=== PATIENT | female | born 1945 | race Caucasian/White ===

== ENCOUNTER 2017-07-03 15:16 | Emergency (ER) | payer MEDICARE ==
[~2017-07-03] VITALS: Ht 154.9 cm; Wt 99.8 kg
--- OUTSIDE RECORDS SUMMARY | ~2017-07-03 | XMS | Clinical Summary ---
Demographics + + + | Address | [address] | | | [place] [address] | + + + | Home Phone | | + + + | Preferred Language | Unknown | + + + | Marital Status | Single | + + + | Muslim Affiliation | CHR | + + + | Race | White | + + + | Ethnic Group | Not or | + + + Author + + + | Author | [facility] | + + + | Organization | [facility] | + + + | Address | Unknown | + + + | Phone | Unavailable | + + + Support +------+ +---------+ + | Name | Relationship | Address | Phone | +------+ +---------+ + ECON | Unknown | | +------+ +---------+ + Care Team Providers + +------+ + | Care Surveillance Officer Name | Role | Phone | + +------+ + | Samson Paniagua MD | PP | | + +------+ + Source Comments JEREMY is fully live on [facility] Allergies + + + + + + | Active Allergy | Reactions | Severity | Noted | Comments | | | | | Date | | + + + + + + | Penicillins | Hives | Medium | 06/04/19 | | | | | | 15 | | + + + + + + | Oxycodone-Acetaminop | Nausea and Vomiting | | 06/04/19 | | | hen | | | 15 | | + + + + + + | Tramadol | Nausea and Vomiting | | 06/04/19 | | | | | | 15 | | + + + + + + | Hydrocodone-Acetamin | Nausea and Vomiting | | 06/04/19 | | | ophen | | | 15 | | + + + + + + Current Medications + + + +---------+------+------+-------+ | Prescription | Sig. | Disp. | Refills | Star | End | Statu | | | | | | t | Date | s | | | | | | Date | | | + + + +---------+------+------+-------+ | furosemide 40 mg | Take 40 mg by mouth | | | | | Activ | | oral tablet | once daily. | | | | | e | + + + +---------+------+------+-------+ | glimepiride 2 mg | Take 2 mg by mouth | | | | | Activ | | oral tablet | once daily at | | | | | e | | | bedtime. | | | | | | + + + +---------+------+------+-------+ | b complex-ascorbic | Take 1 each by mouth | | | | | Activ | | acid-folic acid 0.2 | two times daily. | | | | | e | | mg oral tablet | | | | | | | + + + +---------+------+------+-------+ | omeprazole 20 mg | Take 20 mg by mouth | | | | | Activ | | oral capsule,delayed | once daily. | | | | | e | | release(/EC) | | | | | | | + + + +---------+------+------+-------+ | metoprolol | Take 25 mg by mouth | | | | | Activ | | tartrate 25 mg oral | two times daily. | | | | | e | | tablet | | | | | | | + + + +---------+------+------+-------+ | aspirin chewable | Take 81 mg by mouth | | | | | Activ | | 81 mg oral | once daily. | | | | | e | | tablet,chewable | | | | | | | + + + +---------+------+------+-------+ | lovastatin 20 mg | Take 20 mg by mouth | | | | | Activ | | oral tablet | once daily in the | | | | | e | | | evening. Administer | | | | | | | | with evening meal. | | | | | | + + + +---------+------+------+-------+ | CALCIUM | Take 1 tablet by | | | | | Activ | | CARBONATE/VITAMIN D3 | mouth every seven | | | | | e | | (VITAMIN D-3 ORAL) | days. | | | | | | + + + +---------+------+------+-------+ | potassium chloride | Take 1 tablet by | | | | | Activ | | 10 mEq oral tablet | mouth two times | | | | | e | | extended | daily. | | | | | | | releaseIndications: | | | | | | | | Chronic bronchitis | | | | | | | | (HCC), HTN | | | | | | | | (hypertension), HLD | | | | | | | | (hyperlipidemia), | | | | | | | | Type 2 diabetes | | | | | | | | mellitus (HCC), GERD | | | | | | | | (gastroesophageal | | | | | | | | reflux disease), | | | | | | | | History of DVT of | | | | | | | | lower extremity, | | | | | | | | Malignant neoplasm | | | | | | | | mouth floor (HCC) | | | | | | | + + + +---------+------+------+-------+ | warfarin 5 mg oral | Take 2.5-5 mg by | | | | | Activ | | tablet | mouth once daily. | | | | | e | | | 5mg on Tuesday, 2.5mg | | | | | | | | all other days of | | | | | | | | the week | | | | | | + + + +---------+------+------+-------+ | acetaminophen 650 | Take 10.15-20.3 mL | | | 01/2 | | Activ | | mg/20.3 mL oral | by mouth every four | | | 3/20 | | e | | suspension | hours as needed. | | | 15 | | | + + + +---------+------+------+-------+ | chlorhexidine 0.12 | Take 15 mL by mouth | 473 mL | | 01/2 | | Activ | | % mucous membrane | every six hours. | | | 3/20 | | e | | mouthwash | Swish undiluted oral | | | 15 | | | | | rinse around in | | | | | | | | mouth for 30 | | | | | | | | seconds, then spit. | | | | | | | | Do not swallow. | | | | | | + + + +---------+------+------+-------+ Active Problems + + + | Problem | Noted Date | + + + | Chronic bronchitis (HCC) | | + + + + + | Overview: diffuse obstructive (per PCP notes) | + + + +---+ | HTN (hypertension) | | + +---+ | HLD (hyperlipidemia) | | + +---+ | Type 2 diabetes mellitus (HCC) | | + +---+ | GERD (gastroesophageal reflux disease) | | + +---+ | History of DVT of lower extremity | | + +---+ | Malignant neoplasm mouth floor (HCC) | | + +---+ Family History + +------+--------+ + | Relation | Name | Status | Comments | + +------+--------+ + Social History + + + +--------+ + | Tobacco Use | Types | Packs/Day | Years | Date | | | | | Used | | + + + +--------+ + | Former Smoker | Cigarettes | 1.5 | 35 | Quit: 05/30/2013 | + + + +--------+ + + +---+---+---+ | Smokeless Tobacco: | | | | | Never Used | | | | + +---+---+---+ + + + | Sex Assigned at | Date Recorded | | | | + + + | Not on file | | + + + Last Filed Vital Signs + + + + | Vital Sign | Reading | Time Taken | + + + + | Blood Pressure | 157/52 | 07/18/2014 2:31 PM PST | + + + + | Pulse | 58 | 07/18/2014 2:31 PM PST | + + + + | Temperature | 36.3 C (97.3 F) | 06/21/2014 7:35 AM PST | + + + + | Respiratory Rate | 16 | 06/21/2014 7:35 AM PST | + + + + | Oxygen Saturation | 95% | 06/21/2014 7:35 AM PST | + + + + | Inhaled Oxygen | - | - | | Concentration | | | + + + + | Weight | 99.8 kg (220 lb) | 07/18/2014 2:31 PM PST | + + + + | Height | 170.2 cm (5' 7") | 07/18/2014 2:31 PM PST | + + + + | Body Mass Index | 34.46 | 07/18/2014 2:31 PM PST | + + + + Plan of Treatment + + + + + | Health Maintenance | Due Date | Last Done | Comments | + + + + + | INFLUENZA VACCINE | | | | | (FLU SHOT) | 7 | | | + + + + + Results Not on filefrom Last 3 Months
--- OUTSIDE RECORDS SUMMARY | ~2017-07-03 | XMS | Clinical Summary ---
Demographics + + + | Address | [address] | | | [place] [address] | + + + | Home Phone | | + + + | Preferred Language | Unknown | + + + | Marital Status | Single | + + + | Mandaen Affiliation | CHR | + + + [...] Team Providers + +------+ + | Care Reheater Helper Name | Role | Phone | + +------+ + | Samson Paniagua MD | PP | | + +------+ + Source Comments JEREMY is fully live on [facility] Allergies + + + + + + [...]
[~2017-07-03 15:16] MED LIST: ACETAMINOPHEN-118 M1 PO; ASPIRIN EC81 MG PO; CEPHALEXIN500 MG PO; COMBIVENT INH14.7 GM INH; DOXYCYCLINE HY100 MG PO; FENTANYL1 EAC2 TD; FOSAMAX70 MG PO; FUROSEMIDE40 MG PO; GLIMEPIRIDE2 MG PO; GLYBURIDE2.5 MG PO; KLOR-CON 1010 MEQ PO; LEVOFLOXACIN500 MG PO; LISINOPRIL10 MG; LOVASTATIN20 MG PO; MECLIZINE HCL25 MG PO; METOPROLOL SUCC25 MG PO; METOPROLOL TART25 MG PO; METOPROLOL TART50 MG PO; NYSTATIN100000 UN1 PO; OCUVITE LUTEIN1 EAC1 PO; OMEGA 3 FISH O1 EACH PO; PERIDEX473 ML PO; PREDNISONE10 MG PO; PRILOSEC20 MG PO; PROVENTIL HFA6.7 GM INH; SURESTEP PRO1 EA VI; VITAMIN B COMP1 EACH PO; VITAMIN D250000 UNIT PO; VITAMIN D32000 UNIT PO; WARFARIN SODIUM5 MG PO
[2017-07-03] MEDS ORDERED: LISINOPRIL10 MG PO (16:54)
--- NOTE | 2017-07-04 14:52 | EKG ---
[facility] [address] [place] [address] Signed Sinus bradycardia Otherwise normal ECG When compared with ECG of 23-FEB-2016 11:49, No significant change was found Confirmed by MAURICE BARRIGA MD ([id number]) on 07/04/2017 2:51:59 PM Electronically Signed By: MAURICE BARRIGA MD 07/04/17 1452 PATIENT NAME: DECLAN BARRON Electrocardiogram DATE OF : 41 PHYSICIAN: MAURICE BARRIGA MD REPORT #: [id number] REPORT IS CONFIDENTIAL AND NOT TO BE RELEASED WITHOUT AUTHORIZATION
[2017-08-23] MEDS ORDERED: ZESTRIL10 MG PO (11:08)
[2017-08-23] MEDS ORDERED: CELEXA20 MG PO (11:09)
== END 2017-07-03 18:04 | disposition home or self-care (01) ==
LOC: ED 15:16
DX: R42 Dizziness and giddiness (principal); R00.1 Bradycardia, unspecified; J44.9 Chronic obstructive pulmonary disease, unspecified; I10 Essential (primary) hypertension; E11.9 Type 2 diabetes mellitus without complications; K21.9 Gastro-esophageal reflux disease without esophagitis; Z87.891 Personal history of nicotine dependence; Z88.0 Allergy status to penicillin; Z88.8 Allergy status to other drugs, medicaments and biological substances; Z88.5 Allergy status to narcotic agent; Z79.899 Other long term (current) drug therapy; Z79.01 Long term (current) use of anticoagulants
CPT/HCPCS: 70450; 80053; 81001; 84484; 85025; 93005; 93010; 99284

== ENCOUNTER 2017-12-06 07:55 | Day surgery (SDC) | payer MEDICARE ==
[~2017-12-06] VITALS: Ht 154.9 cm; Wt 91.6 kg
[~2017-12-06 07:55] MED LIST changes: +CELEXA20 MG PO; +FAMOTIDINE10 MG PO; +LISINOPRIL10 MG PO; +ZESTRIL10 MG PO
--- NOTE | 2017-12-06 10:00 | NUR ---
12/06/17 Taylor Sofia 0993 PT ARRIVED WITH EYES OPEN AND RESP EVEN AND UNLABORED ON 6L VIA MASK. 0955 O2 REMOVED O2 SAT 100%. PT DENIES NAUSEA AND PAIN AND IS RESTING IN BED.
--- NOTE | 2017-12-06 10:25 | NUR ---
PATIENT RETURNED TO DAY SURGERY, AWAKE AND ON ROOM AIR. PATIENT TOLERATING A CUP OF WATER AND JELLO PROVIDED. IV IS SALINE LOCKED. PATIENT HAS NO NAUSEA, REPORT 1/10 LEFT MOUTH PAIN. FAMILY IN ROOM WITH PATIENT.
[2017-12-06] MEDS ORDERED: DILAUDID2 MG PO (10:43)
--- NOTE | 2017-12-06 10:52 | NUR ---
PATIENT TOLERATING P.O. INTAKE. PATIENT DENIES NEED TO VOID AT THIS TIME. NO PAIN OR NAUSEA. PAIN MEDICATION PRESCRIPTION GIVEN TO FAMILY TO DROP OFF AT PHARMACY. PATIENT DENIES NEED FOR PAIN MEDICATION AT THIS TIME.
--- NOTE | 2017-12-06 11:20 | NUR ---
PATIENT GIVEN DISCHARGE INSTRUCTIONS, UP TO VOID.
--- NOTE | 2017-12-06 11:31 | NUR ---
PATIENT WHEELED TO FRONT ENTRANCE VIA WHEELCHAIR. PATIENT PLACED SELF IN CAR AND FAMILY DRIVING PATIENT HOME.
--- NOTE | 2017-12-06 17:26 | OR ---
[facility] [address] [place], [place] [address] Signed DATE OF OPERATION: 12/06/2017 SURGEON: Wayne Young MD PREOPERATIVE DIAGNOSIS: Left oral lesion. POSTOPERATIVE DIAGNOSIS: Left oral lesion. PROCEDURE PERFORMED: Biopsy of left oral lesion. ANESTHESIA: General LMA, C.R.N.Kelsey. [place]. PREOPERATIVE HISTORY: Ms. Barron is a 72-year-old lady with an exophytic lesion on the left buccal mucosa. She is taken to the operating room for an excision biopsy and frozen section evaluation. 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 OPERATIVE PROCEDURE AND FINDINGS: After informed consent, the patient was taken to the operating room and placed in supine position where general LMA anesthesia was induced. The patient and procedure were verified. Headlight exam of the oral cavity showed exophytic granular lesion on the left buccal mucosa. Several biopsies were taken with the Sara and sent to Pathology for frozen section. This was very friable granular tissue. It extended back posteriorly near the retromolar trigone onto the mandible from the buccal mucosa onto the lateral floor of mouth on this side anteriorly along the mandible, the edentulous mandible near the first tooth, which was a canine. Fairly extensive ulcerated erosive lesion, frozen section came back as at least carcinoma in situ, probably squamous cell cancer. It was decided that major excision would be necessary, which would not be attempted today. The bleeding stopped after simple observation. Pharynx was suctioned clear of blood and secretions. The patient was then awakened, extubated, and transported to recovery room in good condition. COMPLICATIONS: No complications. Electronically Signed By: WAYNE YOUNG MD 12/06/17 1726 PATIENT NAME: DECLAN BARRON OPERATIVE REPORT DATE OF : 41 REPORT #: [id number] PHYSICIAN: WAYNE YOUNG MD PCP: JACK PERRY MD REPORT IS CONFIDENTIAL AND NOT TO BE RELEASED WITHOUT AUTHORIZATION [facility] [address] [place] [address] Signed BLOOD LOSS: Minimal. SPECIMEN: To Pathology. DRAINS: No drains. Wayne Young MD GC/VERNONL /[id number] Copies: ~ Electronically Signed By: WAYNE YOUNG MD 12/06/17 1726 PATIENT NAME: DECLAN BARRON OPERATIVE REPORT DATE OF : 41 REPORT #: [id number] PHYSICIAN: WAYNE YOUNG MD PCP: JACK PERRY MD REPORT IS CONFIDENTIAL AND NOT TO BE RELEASED WITHOUT AUTHORIZATION
== END 2017-12-06 11:25 | disposition home or self-care (01) ==
LOC: OPS 07:55 → DS 07:55 → OPS 09:30 → DS 12:00
PROVIDERS: Otolaryngology
PROC: 0CB40ZX Excision of Buccal Mucosa, Open Approach, Diagnostic (ICD-10-PCS; principal; 2017-12-06 09:30)
DX: C06.9 Malignant neoplasm of mouth, unspecified (principal); E78.00 Pure hypercholesterolemia, unspecified; I10 Essential (primary) hypertension; J45.909 Unspecified asthma, uncomplicated; E11.9 Type 2 diabetes mellitus without complications; Z87.891 Personal history of nicotine dependence; Z88.0 Allergy status to penicillin; Z88.5 Allergy status to narcotic agent; Z79.84 Long term (current) use of oral hypoglycemic drugs; Z79.899 Other long term (current) drug therapy
CPT/HCPCS: J2405; J2704; J2765; J3010; J7120

== ENCOUNTER 2020-07-29 08:00 | Day surgery (SDC) | payer MEDICARE ==
[~2020-07-29] VITALS: Ht 157.5 cm; Wt 92.7 kg
--- NOTE | ~2020-07-29 | OR ---
[facility] [address] [place], [place] [address] Draft DATE OF OPERATION: 07/29/2020 SURGEON: Wayne Lee MD PREOPERATIVE DIAGNOSIS: Left facial lesion and dysphagia. POSTOPERATIVE DIAGNOSIS: Left facial lesion and dysphagia. PROCEDURE: Direct laryngoscopy, excision of left facial lesion. ANESTHESIA: General orotracheal; PASSENGER REPRESENTATIVE, Jodi. 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 She had a major excision of the left floor of mouth lesion about 2-1/2 years ago at [facility]. She had a composite resection with flap reconstruction, tracheostomy. 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 This granulation type tissue fistula has gotten larger concern regarding recurrent cancer. She is taken to the operating room for excision of this lesion. Also having some problems with dysphagia. We will perform a laryngoscopy to evaluate that. OPERATIVE PROCEDURE AND FINDINGS: After informed consent, the patient was taken to the operating room, placed in the supine position where general orotracheal anesthesia was induced. The patient and procedure were verified. The patient was repositioned. The anterior commissure laryngoscope was used to visualize the hypopharynx and larynx. No abnormalities were seen. Piriform was clear. No biopsies. The scope was removed, well tolerated. The patient was repositioned. The left face was sterilely prepped and draped. The lesion in question was about 2 cm in diameter in the skin overlying the anterior mandible near the mental process a bit above the edge of the mandible. This was a granular type lesion with scar tissue surrounding it. The area was sterilely prepped and draped. 1% lidocaine with epi was injected. Excision was performed in elliptical manner through skin, subcutaneous tissue. There was lots of granulation tissue and the granulation tissue was overlying the mandibular reconstruction plate. The lesion was sent to pathology in formalin. Granulation tissue was excised sharply. The skin was PATIENT NAME: GEMMA BARRON OPERATIVE REPORT DATE OF : 41 REPORT #: [id number] PHYSICIAN: WAYNE LEE MD PCP: JACK PERRY MD REPORT IS CONFIDENTIAL AND NOT TO BE RELEASED WITHOUT AUTHORIZATION [facility] [address] [place], [place] [address] Draft elevated on either side to allow tension free closure. The closure was with 4-0 interrupted Vicryl subcu and 4-0 interrupted nylon on the skin. Excellent cosmetic closure was obtained. The patient was then awakened, extubated, and transported to recovery room in good condition. No complications. BLOOD LOSS: Minimal. SPECIMEN: To pathology, left cheek lesion. DRAINS: None. Wayne Lee MD GC/MODL /[id number] Copies: ~ PATIENT NAME: GEMMA BARRON OPERATIVE REPORT DATE OF : 41 REPORT #: [id number] PHYSICIAN: WAYNE LEE MD PCP: JACK PERRY MD REPORT IS CONFIDENTIAL AND NOT TO BE RELEASED WITHOUT AUTHORIZATION
[~2020-07-29 08:00] MED LIST changes: +CALCIUM500 MG PO; +DILAUDID2 MG PO; +LOSARTAN POTASS25 MG PO; +LUBRICANT EYE D10 ML OD; +OMEGA 3 1,0001 EACH PO; +PRILOSEC OTC20 MG PO
--- NOTE | 2020-07-29 10:13 | NUR ---
07/29/20 1013 Tonya Cantu 1007 PATIENT ARRIVES TO PACU ASLEEP, OPENS EYES WITH VERBAL STIMULI. BACK TO SLEEP WHEN NOT STIMULATED. AUDIBLE GURGLING, MOUTH SUCTIONED, GURGLING RESOLVED. RESP EVEN AND UNLABORED, MASK AT 6 LITERS. 1010 PATIENT AWAKE OFF/ON, DENIES PAIN OR NAUSEA. RESP EVEN AND UNLABORED, MASK CONTINUED AT 6 LITERS. 1013 OXYGEN MASK OFF.
--- NOTE | 2020-07-29 10:38 | NUR ---
PATIENT BACK IN DAY SURGERY ROOM FROM PACU. DENIES PAIN. DENIES NAUSEA. LEFT CHIN DRESSING CDI. IV SITE WNL. TOLERATING WATER. DECLINES SOMETHING TO EAT AT THIS TIME. SCDs ON. CALL LIGHT WITHIN REACH.
--- NOTE | 2020-07-29 11:04 | NUR ---
PATIENT STATES DOING WELL. DENIES PAIN. DENIES NAUSEA. LEFT CHIN DRESSING CDI. TOLERATING WATER. DISCHARGE INSTRUCTIONS GIVEN TO PATIENT. PATIENT C/O FEELING COLD. WARM BLANKETS GIVEN TO PATIENT. CALL LIGHT WITHIN REACH.
--- NOTE | 2020-07-29 13:01 | NUR ---
1120: VS CHECKED. PATIENT STATES SHE FEELS NAUSEOUS, COLD AND SHAKEY. BLOOD SUGAR CHECKED FOR 156 MG/DL. PATIENT GIVEN JELLO TO EAT. PATIENT THINKS EATING SOMETHING MAY HELP HER FEEL BETTER SINCE SHE HASN'T EATEN SINCE LAST NIGHT. WARM BLANKETS GIVEN TO PATIENT. CALL LIGHT IN REACH. 1145: PATIENT ASSISTED OOB. GAIT STEADY. ASSISTED TO PATIENT TO GET DRESSED. PATIENT STATES NAUSEA BETTER. STILL SLIGHTLY THERE, THOUGH. PATIENT WOULD LIKE TO GO HOME. RIDE CALLED. 1155: PATIENT DISCHARGED TO HOME WITH FRIEND VIA WHEELCHAIR.
--- NOTE | 2020-07-30 10:47 | PATH ---
[facility] [address] [place], [place] [address] Signed SPECIMEN(S): A LEFT FACIAL LESION SPECIMEN SOURCE: A. LEFT FACIAL LESION CLINICAL HISTORY: Left facial lesion. History of mouth squamous cell carcinoma. FINAL PATHOLOGIC DIAGNOSIS: Skin, left face, excision: - Epidermal ulcer with polypoid granulation tissue and abscess formation. - No evidence of malignancy. COMMENT: Correlation with microbiological culture may be helpful. NAL:cml:C2NR MICROSCOPIC EXAMINATION: Histologic sections of all submitted blocks are examined by light microscopy. These findings, together with the gross examination, support the pathologic diagnosis. GROSS DESCRIPTION: The specimen, labeled "BW, left facial lesion," is received in formalin and consists of one unoriented skin ellipse that measures 2.0 x 0.8 x 0.5 cm. The skin surface shows a pink-griffin, soft nodule that measures 0.7 cm in dimension. The nodule abuts the surgical margins. The specimen is inked, serially sectioned and entirely submitted in cassette (A1). JS (under the direct supervision of a pathologist) The Gross Description was prepared using a voice recognition system. The report was reviewed for accuracy; however, sound-alike word errors, addition and/or deletions may occur. If there is any question about this report, please contact Client Services. PERFORMING LABORATORY: The technical component was performed by [employer], [address] [place] [id number] (Portable Sawyer: Earlene Phillips MD; CLIA# [id number]). [facility], [address] [address] (CLIA# [id number]). PATIENT NAME: DECLAN BARRON PATHOLOGY DATE OF : 41 REPORT #: [id number] PHYSICIAN: [facility] PCP: JACK PERRY MD REPORT IS CONFIDENTIAL AND NOT TO BE RELEASED WITHOUT AUTHORIZATION [address] [place], [place] [address] Signed Diagnostician: Tammy Arroyo MD Pathologist Electronically Signed 07/30/2020 Copies: ~ PATIENT NAME: DECLAN BARRON [facility] PATHOLOGY DATE OF : 41 REPORT #: [id number] PHYSICIAN: [facility] PATHOLOGY PCP: JACK PERRY MD REPORT IS CONFIDENTIAL AND NOT TO BE RELEASED WITHOUT AUTHORIZATION
== END 2020-07-29 11:55 | disposition home or self-care (01) ==
LOC: DS 08:00 → OPS 08:00
PROVIDERS: ATTEND Otolaryngology
PROC: 0HB1XZZ Excision of Face Skin, External Approach (ICD-10-PCS; 2020-07-29)
PROC: 0CJS8ZZ Inspection of Larynx, Via Natural or Artificial Opening Endoscopic (ICD-10-PCS; principal; 2020-07-29 10:00)
PROC: 0HQ1XZZ Repair Face Skin, External Approach (ICD-10-PCS; 2020-07-29 10:00)
DX: L98.499 Non-pressure chronic ulcer of skin of other sites with unspecified severity (principal); L02.01 Cutaneous abscess of face; R13.10 Dysphagia, unspecified; I10 Essential (primary) hypertension; E78.00 Pure hypercholesterolemia, unspecified; J43.9 Emphysema, unspecified; E11.9 Type 2 diabetes mellitus without complications; R06.83 Snoring; R42 Dizziness and giddiness; R94.31 Abnormal electrocardiogram [ECG] [EKG]; F41.0 Panic disorder [episodic paroxysmal anxiety]; M81.0 Age-related osteoporosis without current pathological fracture; K14.8 Other diseases of tongue; Z85.818 Personal history of malignant neoplasm of other sites of lip, oral cavity, and pharynx; Z96.5 Presence of tooth-root and mandibular implants; Z79.01 Long term (current) use of anticoagulants; Z86.718 Personal history of other venous thrombosis and embolism; Z79.84 Long term (current) use of oral hypoglycemic drugs; Z87.891 Personal history of nicotine dependence; Z88.1 Allergy status to other antibiotic agents; Z88.5 Allergy status to narcotic agent; Z88.0 Allergy status to penicillin
CPT/HCPCS: 85610; J0330; J2001; J2250; J2704; J7121

== ENCOUNTER 2020-10-20 20:39 | Emergency (ER) | payer MEDICARE ==
[~2020-10-20] VITALS: Ht 157.5 cm; Wt 94.0 kg
--- NOTE | 2020-10-21 09:46 | EKG ---
[facility] [address] [facility] [place] [address] Signed Normal sinus rhythm Nonspecific ST abnormality Abnormal ECG When compared with ECG of 26-JUL-2020 09:08, Criteria for Septal infarct are no longer present Confirmed by MAURICE BARRIGA MD ([id number]) on 10/21/2020 9:46:14 AM Electronically Signed By: MAURICE BARRIGA MD 10/21/20 0946 PATIENT NAME: DECLAN BARRON Electrocardiogram DATE OF : 41 PHYSICIAN: MAURICE BARRIGA MD REPORT #: [id number] REPORT IS CONFIDENTIAL AND NOT TO BE RELEASED WITHOUT AUTHORIZATION
== END 2020-10-20 22:10 | disposition home or self-care (01) ==
LOC: ED 20:39
DX: R07.9 Chest pain, unspecified (principal); J44.9 Chronic obstructive pulmonary disease, unspecified; I10 Essential (primary) hypertension; E11.9 Type 2 diabetes mellitus without complications; K21.9 Gastro-esophageal reflux disease without esophagitis; Z87.891 Personal history of nicotine dependence; Z88.0 Allergy status to penicillin; Z88.8 Allergy status to other drugs, medicaments and biological substances; Z88.5 Allergy status to narcotic agent; Z79.899 Other long term (current) drug therapy; Z79.01 Long term (current) use of anticoagulants
CPT/HCPCS: 71045; 80053; 83735; 84484; 85025; 85610; 93005; 93010; 99285-25

== ENCOUNTER 2022-03-27 18:21 | Emergency (ER) | payer MEDICARE ==
[~2022-03-27] VITALS: Ht 157.5 cm; Wt 93.1 kg
[~2022-03-27 18:21] MED LIST changes: +OMEPRAZOLE20 MG PO
--- NOTE | 2022-03-28 12:25 | EKG ---
[facility] [address] [facility] [place], [place] [address] Signed Normal sinus rhythm Nonspecific ST abnormality Abnormal ECG When compared with ECG of 24-FEB-2021 15:17, No significant change was found Confirmed by TEODORO MONACO MD ([id number]) on 03/28/2022 12:25:05 PM Electronically Signed By: TEODORO MONACO MD 03/28/22 1225 PATIENT NAME: DECLAN BARRON Electrocardiogram DATE OF : 41 PHYSICIAN: TEODORO MONACO MD REPORT #: [id number] REPORT IS CONFIDENTIAL AND NOT TO BE RELEASED WITHOUT AUTHORIZATION
== END 2022-03-27 19:48 | disposition home or self-care (01) ==
LOC: ED 18:21
DX: J40 Bronchitis, not specified as acute or chronic (principal); Z20.822 Contact with and (suspected) exposure to COVID-19; K21.9 Gastro-esophageal reflux disease without esophagitis; I10 Essential (primary) hypertension; E11.9 Type 2 diabetes mellitus without complications; Z87.891 Personal history of nicotine dependence; Z88.0 Allergy status to penicillin; Z88.8 Allergy status to other drugs, medicaments and biological substances; Z88.5 Allergy status to narcotic agent; Z79.899 Other long term (current) drug therapy; Z79.01 Long term (current) use of anticoagulants
CPT/HCPCS: 36415; 71045; 80053; 83880; 84484; 85025; 87502; 93005; 93010; 99285-25; C9803; U0003

== ENCOUNTER 2024-03-30 15:42 | Emergency (ER) | payer MEDICARE ==
[~2024-03-30] VITALS: Ht 157.5 cm; Wt 93.3 kg
[~2024-03-30 15:42] MED LIST changes: +ALLOPURINOL100 MG PO; +IRBESARTAN75 MG PO; +PANTOPRAZOLE SO40 MG PO; +TRAZODONE HCL50 MG PO
[2024-03-30] MEDS ORDERED: ALBUTEROL SULFATE 0.083% 3 ML VIAL INH ONE (16:30)
[2024-03-30] MEDS ORDERED: methylPREDNISolone SOD SUCC 125 MG/2 ML VIAL IV ONE (16:30)
[2024-03-30 16:48] LABS: BASOPHILS 2.5 % (0-2); EOSINOPHILS 2.1 % (0-6); HEMATOCRIT 37.7 % (35.0-50.0); HEMOGLOBIN 12.3 g/dL (12.0-18.0); MCH 28.2 (27-36); MCHC 32.7 g/dl (30-36); MCV 86.1 fl (81-99); NEUTROPHILS 67.4 % (39-80); PLATELET COUNT 314 K/uL (140-440); RBC 4.38 M/ul (4.3-5.7); RDW 13.1 (10.5-15.0)
[2024-03-30] MEDS ORDERED: LISINOPRIL10 MG PO (16:51)
[2024-03-30] MEDS ORDERED: DIPHENOXYLATE-1 EACH PO (16:53)
[2024-03-30] MEDS ORDERED: DOXYCYCLINE HY100 M3 PO (16:53)
[2024-03-30 16:58] LABS: INR 2.07 (0.80-1.30); PROTIME 22.9 Sec (11.2-14.2)
[2024-03-30 17:09] LABS: ALBUMIN 3.4 g/dL (3.4-5.0); ALBUMIN/GLOBULIN RATIO 0.83 (1.1-2.4); ANION GAP 9.6 (7-21); BILIRUBIN, TOTAL 0.4 ng/dL (0.2-1.0); BUN/CREATININE RATIO 12.75 (6.0-28.6); CALCIUM 9.3 mg/dL (8.5-10.1); CREATININE, SERUM 1.49 mg/dL (0.55-1.02); POTASSIUM 3.6 mmol/L (3.5-5.1); PROTEIN, TOTAL 7.5 g/dL (6.4-8.2)
[2024-03-30] MEDS ORDERED: levoFLOXacin 500 MG TAB PO ONE (17:45)
[2024-03-30] MEDS ORDERED: INHALER, ASSIST DEVICES 1 EACH SPACER MISC ONE (17:45)
[2024-03-30] MEDS ORDERED: ALBUTEROL SULFATE 8 GM HOME.PACK INH ONE (17:45)
[2024-03-30] MEDS ORDERED: PREDNISONE20 MG PO (17:47)
[2024-03-30] MEDS ORDERED: LEVOFLOXACIN500 MG PO (17:47)
[2024-03-30 18:19] VITALS: BP 135/77
== END 2024-03-30 18:11 | disposition home or self-care (01) ==
LOC: ED 15:42
PROVIDERS: Emergency Medicine
DX: J18.9 Pneumonia, unspecified organism (principal); J44.0 Chronic obstructive pulmonary disease with (acute) lower respiratory infection; I10 Essential (primary) hypertension; E11.9 Type 2 diabetes mellitus without complications; Z87.891 Personal history of nicotine dependence; Z88.0 Allergy status to penicillin; Z88.5 Allergy status to narcotic agent; Z88.8 Allergy status to other drugs, medicaments and biological substances; Z79.899 Other long term (current) drug therapy; Z79.01 Long term (current) use of anticoagulants
CPT/HCPCS: 36415; 71045; 80053; 83880; 85025; 85610; 94640; 96374; 99285-25; J2919

== ENCOUNTER 2025-03-19 14:59 | Emergency (ER) | payer OTHER, MEDICARE ==
[~2025-03-19] VITALS: Ht 157.5 cm; Wt 90.0 kg
[~2025-03-19 14:59] MED LIST changes: +CALCIUM PO; -CALCIUM500 MG PO; +DIPHENOXYLATE-1 EACH PO; +DOXYCYCLINE HY100 M3 PO; +FLUOROMETHOLONE5 ML OU; +IRBESARTAN150 MG PO; +JARDIANCE10 MG PO; +PREDNISONE20 MG PO; +[UNRECOGNIZED DRUG - OTHER] PO
[2025-03-19 15:45] LABS: BASOPHILS 0.4 % (0.1-1.2); EOSINOPHILS 1.6 % (0.7-5.8); LYMPHOCYTES 24.6 % (19.3-51.7); MCH 27.5 PG (25.6-32.2); MCHC 32.3 g/dL (32.2-35.5); MCV 85.1 fL (79.4-94.8); MONOCYTES 5.3 % (4.7-12.5); NEUTROPHILS 67.7 % (34.0-71.1); RBC 4.44 M/uL (3.93-5.22)
[2025-03-19] MEDS ORDERED: KETOROLAC TROMETHAMINE 15 MG/ML VIAL IV ONE (15:45)
[2025-03-19 15:49] LABS: INR 1.8 (0.80-1.30); PROTIME 19.8 Sec (11.2-14.2)
[2025-03-19 15:54] LABS: ALT (SGPT) 16.0 U/L (14-59); AST (SGOT) 17.0 U/L (15-37); GLOMERULAR FILTRATION RATE,EST 29.0 mL/min (>60); PROTEIN, TOTAL 8.3 g/dL (6.4-8.2); UREA NITROGEN 37.0 mg/dL (7-18)
[2025-03-19] MEDS ORDERED: HYDROmorphone HCL 1 MG/ML SYR IV PRN (16:15)
[2025-03-19] MEDS ORDERED: LIDOCAINE HCL 2% 20 MG/ML VIAL INJ ONE (17:10)
[2025-03-19] MEDS ORDERED: LIDOCAINE HCL 2% 5 ML SDV ONE (17:10)
[2025-03-19] MEDS ORDERED: DEXAMETHASONE SOD PHOS 10 MG/ML VIAL ONE (17:24)
[2025-03-19] MEDS ORDERED: Ropivacaine HCl 0.5% 30 ML VIAL ONE (17:24)
[2025-03-19] MEDS ORDERED: ONDANSETRON ODT4 MG PO (18:32)
[2025-03-19] MEDS ORDERED: HYDROCODON-ACE1 EA10 PO (18:32)
[2025-03-19 19:31] VITALS: BP 146/52
== END 2025-03-19 19:32 | disposition home or self-care (01) ==
LOC: ED 14:59
PROVIDERS: Emergency Medicine
DX: S42.252A Displaced fracture of greater tuberosity of left humerus, initial encounter for closed fracture (principal); S42.212A Unspecified displaced fracture of surgical neck of left humerus, initial encounter for closed fracture; W18.30XA Fall on same level, unspecified, initial encounter; J44.9 Chronic obstructive pulmonary disease, unspecified; I10 Essential (primary) hypertension; E11.9 Type 2 diabetes mellitus without complications; Z87.891 Personal history of nicotine dependence; Z88.0 Allergy status to penicillin; Z88.5 Allergy status to narcotic agent; Z79.899 Other long term (current) drug therapy
CPT/HCPCS: 36415; 64415; 73030; 73060; 80053; 85025; 85610; 96374; 96375; 99284-25; J1100; J1171; J1885; J2003; J2405; J2795

== ENCOUNTER 2025-03-20 16:33 | Inpatient (IN) | payer OTHER, MEDICARE ==
[~2025-03-20] VITALS: Ht 157.5 cm; Wt 90.0 kg
[~2025-03-20 16:33] MED LIST changes: +HYDROCODON-ACE1 EA10 PO; +ONDANSETRON ODT4 MG PO
[2025-03-20] MEDS ORDERED: SODIUM CHLORIDE 0.9% 1,000 ML IV SCH (17:00)
[2025-03-20 17:43] LABS: BASOPHILS 0.1 % (0.1-1.2); EOSINOPHILS 0.2 % (0.7-5.8); LYMPHOCYTES 12.4 % (19.3-51.7); MCH 27.3 PG (25.6-32.2); MCHC 32.5 g/dL (32.2-35.5); MCV 84.0 fL (79.4-94.8); MONOCYTES 7.2 % (4.7-12.5); NEUTROPHILS 79.6 % (34.0-71.1); RBC 3.74 M/uL (3.93-5.22)
[2025-03-20] MEDS ORDERED: ACETAMINOPHEN 325 MG TAB PO PRN (17:45)
[2025-03-20] MEDS ORDERED: GLUCAGON,HUMAN RECOMBINANT 1 MG/ML VIAL SUB-Q PRN (17:45)
[2025-03-20] MEDS ORDERED: DEXTROSE 50% 50 ML SYR IV PRN ×2 (17:45)
[2025-03-20] MEDS ORDERED: DEXTROSE 5% 1,000 ML IV PRN (17:45)
[2025-03-20] MEDS ORDERED: IBLOOD GLUCOSE TEST STRIP 1 EA TEST XX PRN (17:45)
[2025-03-20 17:52] LABS: INR 1.8 (0.80-1.30); PROTIME 20.2 Sec (11.2-14.2)
[2025-03-20 17:57] LABS: ALT (SGPT) 16.0 U/L (14-59); AST (SGOT) 16.0 U/L (15-37); GLOMERULAR FILTRATION RATE,EST 23.0 mL/min (>60); PHOSPHORUS, INORGANIC 3.8 mg/dL (2.5-4.9); PROTEIN, TOTAL 7.2 g/dL (6.4-8.2); UREA NITROGEN 48.0 mg/dL (7-18)
[2025-03-20] MEDS ORDERED: LACTATED RINGER'S 1,000 ML IV SCH (18:30)
[2025-03-20 18:45] VITALS: BP 148/52
[2025-03-20 18:46] VITALS: BP 148/52
[2025-03-20] MEDS ORDERED: MORPHINE SULFATE 4 MG/ML VIAL IV PRN (19:15)
[2025-03-20 20:34] VITALS: BP 126/56
[2025-03-20 20:51] VITALS: BP 126/56
[2025-03-20] MEDS ORDERED: IBLOOD GLUCOSE TEST STRIP 1 EA TEST VI SCH (21:00)
[2025-03-20] MEDS ORDERED: INSULIN LISPRO 100 UNIT/ML ML SUB-Q SCH (21:00)
[2025-03-20 23:52] VITALS: BP 121/52
[2025-03-21] VITALS (9 sets, daily range): BP systolic 107–141; BP diastolic 39–89
[2025-03-21 05:37] LABS: BASOPHILS 0.4 % (0.1-1.2); EOSINOPHILS 1.8 % (0.7-5.8); LYMPHOCYTES 26.4 % (19.3-51.7); MCH 27.8 PG (25.6-32.2); MCHC 32.4 g/dL (32.2-35.5); MCV 85.9 fL (79.4-94.8); MONOCYTES 7.2 % (4.7-12.5); NEUTROPHILS 63.8 % (34.0-71.1); RBC 3.27 M/uL (3.93-5.22)
[2025-03-21 05:51] LABS: GLOMERULAR FILTRATION RATE,EST 30.0 mL/min (>60); UREA NITROGEN 44.0 mg/dL (7-18)
[2025-03-21 05:55] LABS: INR 1.88 (0.80-1.30); PROTIME 21.0 Sec (11.2-14.2)
[2025-03-21] MEDS ORDERED: PHARMACY RENAL DOSE ADJUSTMENT 1 DOSE MISC PO SCH (12:00)
[2025-03-21] MEDS ORDERED: VOLTAREN ARTHRI20 GM TOP (13:03)
[2025-03-21] MEDS ORDERED: SYSTANE 0.3-0.415 ML OU (13:03)
[2025-03-21] MEDS ORDERED: VENTOLIN HFA18 GM INH (13:04)
[2025-03-21] MEDS ORDERED: PROPYLENE GLYCOL OU PRN (15:00)
[2025-03-21] MEDS ORDERED: EMPAGLIFLOZIN 10 MG TAB PO SCH (15:28)
[2025-03-21] MEDS ORDERED: PANTOPRAZOLE SODIUM 40 MG TABEC PO SCH (15:29)
[2025-03-21 16:12] LABS: INR 1.76 (0.80-1.30); PROTIME 19.9 Sec (11.2-14.2)
--- NOTE | 2025-03-21 21:57 | EKG ---
[facility] [address] [facility] [place] [address] Signed Normal sinus rhythm Low voltage QRS Borderline ECG When compared with ECG of 23-JUN-2022 15:38, premature atrial complexes are no longer present Confirmed by Kera John MD () on 03/21/2025 9:57:16 PM Electronically Signed By: KERA JOHN MD 03/21/252156 PATIENT NAME: DECLAN BARRON Electrocardiogram DATE OF : 41 PHYSICIAN: KERA JOHN MD REPORT #: [id number] REPORT IS CONFIDENTIAL AND NOT TO BE RELEASED WITHOUT AUTHORIZATION
[2025-03-22] VITALS (11 sets, daily range): BP systolic 117–147; BP diastolic 40–55
[2025-03-22 05:33] LABS: BASOPHILS 0.5 % (0.1-1.2); EOSINOPHILS 3.1 % (0.7-5.8); LYMPHOCYTES 26.0 % (19.3-51.7); MCH 27.7 PG (25.6-32.2); MCHC 32.3 g/dL (32.2-35.5); MCV 85.8 fL (79.4-94.8); MONOCYTES 8.0 % (4.7-12.5); NEUTROPHILS 61.9 % (34.0-71.1); RBC 3.25 M/uL (3.93-5.22)
[2025-03-22 05:46] LABS: GLOMERULAR FILTRATION RATE,EST 35.0 mL/min (>60); UREA NITROGEN 30.0 mg/dL (7-18)
[2025-03-22 05:47] LABS: INR 1.51 (0.80-1.30); PROTIME 17.6 Sec (11.2-14.2)
[2025-03-22] MEDS ORDERED: DEXAMETHASONE SOD PHOS 4 MG/ML VIAL ONE (06:59)
[2025-03-22] MEDS ORDERED: Ropivacaine HCl 0.5% 30 ML VIAL ONE (06:59)
[2025-03-22] MEDS ORDERED: LIDOCAINE HCL 2% 5 ML SDV ONE ×2 (06:59→08:00)
[2025-03-22] MEDS ORDERED: TRANEXAMIC ACID IN NACL,ISO-OS 1,000 MG/100 ML PIGGYBACK IV SCH (07:00)
[2025-03-22] MEDS ORDERED: CEFAZOLIN SODIUM 2 GM in SODIUM CHLORIDE 0.9% 100 ML IV SCH ×2 (07:00→15:00)
[2025-03-22] MEDS ORDERED: NALOXONE HCL 0.4 MG SYR IV PRN (09:00)
[2025-03-22] MEDS ORDERED: IBLOOD GLUCOSE TEST STRIP 1 EA TEST VI PRN (09:00)
[2025-03-22] MEDS ORDERED: fentaNYL citrate 50 MCG/ML SDV IV PRN (09:00)
[2025-03-22] MEDS ORDERED: PROCHLORPERAZINE EDISYLATE 10 MG/2 ML VIAL IV PRN (09:00)
[2025-03-22] MEDS ORDERED: LACTATED RINGER'S 1,000 ML IV ONE (09:15)
[2025-03-22] MEDS ORDERED: HYDROCODONE/ACETA 7.5/325 TAB PO PRN (10:00)
[2025-03-22] MEDS ORDERED: SEVOFLURANE 250 ML BTL INH ONE (15:07)
[2025-03-22] MEDS ORDERED: WARFARIN SOD 5 MG TAB PO SCH (16:00)
[2025-03-22] MEDS ORDERED: WARFARIN PER PHARMACY PROTOCOL PO SCH (16:00)
[2025-03-22] MEDS ORDERED: MAGNESIUM HYDROXIDE/AL HYDROX 30 ML CUP PO PRN (20:45)
[2025-03-23] VITALS (9 sets, daily range): BP systolic 113–142; BP diastolic 41–76
[2025-03-23 05:22] LABS: INR 1.49 (0.80-1.30); PROTIME 17.1 Sec (11.2-14.2)
--- NOTE | 2025-03-23 09:25 | OR ---
[facility] [address] [place], [place] [address] Signed DATE OF OPERATION: 03/22/2025 SURGEON: Itz Gunter MD PREOPERATIVE DIAGNOSIS: 100% displaced left proximal humerus fracture. POSTOPERATIVE DIAGNOSIS: 100% displaced left proximal humerus fracture. PROCEDURE PERFORMED: Closed reduction and percutaneous pinning, left proximal humerus. SATELLITE TV INSTALLER: None. ANESTHESIA: General. BLOOD LOSS: Minimal. IMPLANTS: Three 2.3 K-wires, one 2.0 K-wire. BRIEF HISTORY: Gemma is an 80-year-old female who suffered a ground level fall with 100% displacement of her proximal humeral fracture and significant pain. She did not tolerate the displacement even with axillary block. Risks and benefits of operative treatment were discussed with her and she elected to proceed. DESCRIPTION OF PROCEDURE: Once consent was obtained, she was taken to the operating room. After adequate anesthesia, she was placed in the OR table in the low beach chair position. All downside pressure points were well padded. The fracture was reduced by forward flexion, internal rotation, and adduction against an axillary roll of towels. This reduced the fracture nicely. Once this was accomplished, the first K-wire was introduced from the anterolateral aspect of the humerus and advanced proximally into the humeral head under direct image intensifier guidance. Second K-wire was placed roughly parallel, but in a more oblique angle. The third K-wire was placed from the greater tuberosity and Electronically Signed By: ITZ GUNTER MD 03/23/25 0925 PATIENT NAME: GEMMA BARRON OPERATIVE REPORT DATE OF : 41 REPORT #: [id number] PHYSICIAN: ITZ GUNTER MD PCP: LJ HUMMEL MD REPORT IS CONFIDENTIAL AND NOT TO BE RELEASED WITHOUT AUTHORIZATION [address] [address] Signed advanced distally engaging the body of the humerus. The fourth K-wire was placed again oblique to the third one. All K-wires were cut below the skin. Final radiographs showed good reduction and placement of the pins. The pin lengths were good. The wounds were then cleansed and dressed with Allevyn dressing and she was awakened, taken to the recovery room in satisfactory condition. All sponge, needle, and instrument counts were correct. Itz Gunter MD BA/AIDEN /[id number] Copies: ~ Electronically Signed By: ITZ GUNTER MD 03/23/25 0925 PATIENT NAME: GEMMA BARRON OPERATIVE REPORT DATE OF : 41 REPORT #: [id number] PHYSICIAN: ITZ GUNTER MD PCP: LJ HUMMEL MD REPORT IS CONFIDENTIAL AND NOT TO BE RELEASED WITHOUT AUTHORIZATION
[2025-03-23] MEDS ORDERED: POLYETHYLENE GLYCOL 3350 1 PACKET PO SCH (14:16)
[2025-03-23] MEDS ORDERED: WARFARIN SOD 5 MG TAB PO SCH (16:00)
[2025-03-24] VITALS (7 sets, daily range): BP systolic 130–142; BP diastolic 49–59
[2025-03-24 05:42] LABS: INR 1.69 (0.80-1.30); PROTIME 19.3 Sec (11.2-14.2)
[2025-03-24] MEDS ORDERED: WARFARIN SOD 2.5 MG TAB PO SCH (16:00)
[2025-03-25 05:21] VITALS: BP 125/40
[2025-03-25 06:06] LABS: GLOMERULAR FILTRATION RATE,EST 43.0 mL/min (>60); UREA NITROGEN 19.0 mg/dL (7-18)
[2025-03-25 06:30] LABS: INR 1.8 (0.80-1.30); PROTIME 20.2 Sec (11.2-14.2)
[2025-03-25 08:37] VITALS: BP 158/51
[2025-03-25 09:00] VITALS: BP 158/51
[2025-03-25 13:28] VITALS: BP 133/44
[2025-03-25 13:45] VITALS: BP 133/44
[2025-03-25] MEDS ORDERED: WARFARIN SOD 2.5 MG TAB PO SCH (16:00)
[2025-03-26] MEDS ORDERED: HYDROCODON-ACE1 EA10 PO (11:25)
--- NOTE | 2025-03-27 07:35 | EKG ---
[facility] [address] [facility] [place] [address] Signed Sinus bradycardia Low voltage QRS Borderline ECG When compared with ECG of 20-MAR-2025 18:17, No significant change was found Confirmed by Maria M Soares DO ([id number]) on 03/27/2025 7:35:24 AM Electronically Signed By: MARIA M SOARES DO 03/27/25 0735 PATIENT NAME: DECLAN BARRON Electrocardiogram DATE OF : 41 PHYSICIAN: MARIA M SOARES DO REPORT #: [id number] REPORT IS CONFIDENTIAL AND NOT TO BE RELEASED WITHOUT AUTHORIZATION
== END 2025-03-25 15:49 | disposition home health service (06) | DRG 493 ==
LOC: ED 16:33 → MS 17:48
PROVIDERS: Specialist; ADMIT Family Medicine; ATTEND Student in an Organized Health Care Education/Training Program
PROC: 0PSD34Z Reposition Left Humeral Head with Internal Fixation Device, Percutaneous Approach (ICD-10-PCS; principal; 2025-03-22 08:30)
DX: S42.292A Other displaced fracture of upper end of left humerus, initial encounter for closed fracture (principal); N17.9 Acute kidney failure, unspecified; I25.10 Atherosclerotic heart disease of native coronary artery without angina pectoris; W10.8XXA Fall (on) (from) other stairs and steps, initial encounter; R00.1 Bradycardia, unspecified; E11.22 Type 2 diabetes mellitus with diabetic chronic kidney disease; N18.9 Chronic kidney disease, unspecified; K21.9 Gastro-esophageal reflux disease without esophagitis; M10.9 Gout, unspecified; I12.9 Hypertensive chronic kidney disease with stage 1 through stage 4 chronic kidney disease, or unspecified chronic kidney disease; Z88.0 Allergy status to penicillin; Z88.5 Allergy status to narcotic agent; Z88.1 Allergy status to other antibiotic agents; Z86.718 Personal history of other venous thrombosis and embolism; Z79.01 Long term (current) use of anticoagulants; Z85.819 Personal history of malignant neoplasm of unspecified site of lip, oral cavity, and pharynx; Z79.84 Long term (current) use of oral hypoglycemic drugs; Z87.891 Personal history of nicotine dependence
CPT/HCPCS: 01620; 36415; 51798; 64415; 73030; 80048; 80053; 83735; 84100; 85025; 85610; 85730; 93005; 93010; 94762; 94799; 97161; 97166; 97530; 99284; A9270; J0688; J1100; J1815; J2003; J2270; J2405; J2704; J2795; J7030; J7121

== ENCOUNTER 2025-03-25 20:49 | Observation (INO) | payer MEDICARE ==
[~2025-03-25] VITALS: Ht 157.5 cm; Wt 95.2 kg
[~2025-03-25 20:49] MED LIST changes: +SYSTANE 0.3-0.415 ML OU; +VENTOLIN HFA18 GM INH; +VOLTAREN ARTHRI20 GM TOP
[2025-03-25] MEDS ORDERED: HYDROCODONE/ACETA 5/325 TAB PO PRN (21:15)
[2025-03-25] MEDS ORDERED: ACETAMINOPHEN 325 MG TAB PO PRN (21:15)
--- NOTE | 2025-03-25 22:27 | NUR ---
PATIENT TO FLOOR VIA STRETCHER BY FIELD ARTILLERY OPERATIONS MAN. PATIENT ABLE TO TRANSFER FROM STRETCHER TO BED USING 1P SBA. LEFT SHOULDER IN SLING. x2 ALLYVENS REMAIN IN PLACE ON LEFT SHOULDER FROM PREVIOUS ADMISSION. LEFT SHOULDER ALLYVENS C/D/I. L ELBOW ALLYVEN IN PLACE FROM PREVIOUS ADMISSION AND ARE C/D/I. PATIENT REPOSITIONED IN BED. PATIENT DENIES FURTHER NEEDS AT THIS TIME. CALL LIGHT IN REACH.
[2025-03-25 22:28] VITALS: BP 160/61
--- NOTE | 2025-03-25 22:47 | NUR ---
CALL PLACED TO REGARDING PATIENT NOT COMING TO FLOOR WITH IV SITE. MD SOARES STATES IT IS OK FOR PATIENT TO GO WITHOUT AN IV.
--- NOTE | 2025-03-25 22:55 | NUR ---
PATIENT REPORTS 2/10 LEFT SHOULDER PAIN, WORSE WITH MOVEMENT AND REQUESTING PRN PAIN MEDICATION. PRN PAIN MEDICATION ADMINSITERED. PATIENT STATES "CAN I HAVE NAUSEA MEDICATION? I GET NAUSEOUS WITH PAIN MEDIATIONS". NIO NAUSEA MEDICATION PLACED DUE TO PATIENT NOT HAVING IV. PRN MEDICATION ADMINISTERED. PATIENT DENIES FURTHER NEEDS AT THIS TIME. CALL LIGHT IN REACH.
[2025-03-25] MEDS ORDERED: ONDANSETRON 4 MG TAB ODT SL PRN (23:00)
--- NOTE | 2025-03-26 00:48 | NUR ---
PATIENT RESTING IN BED ON BACK WITH EYES CLOSED. HOME CPAP IN PLACE. RESPIRATIONS EVEN AND UNLABORED. CALL LIGHT IN REACH.
[2025-03-26 02:16] VITALS: BP 130/43
--- NOTE | 2025-03-26 02:18 | NUR ---
PT USED TO CANE TO WALK TO BATHROOM. CALL LIGHT WITHIN REACH. PT HAS NO FURTHER NEEDS AT THIS TIME.
--- NOTE | 2025-03-26 04:27 | NUR ---
PATIENT RESTING IN BED ON BACK WITH EYES CLOSED. RESPIRATIONS EVEN AND UNLABORED. CALL LIGHT IN REACH.
[2025-03-26 06:46] VITALS: BP 127/46
[2025-03-26 06:47] VITALS: BP 127/46
--- NOTE | 2025-03-26 06:50 | NUR ---
SBA PATIENT UP TO THE BATHROOM USING HOME CANE TO VOID 400ML BERNARDINO URINE. PATIENT IS UP IN THE CHAIR. CALL LIGHT AND SIDE TABLE WITHIN REACH.
--- NOTE | 2025-03-26 07:22 | NUR ---
REPORT RECEIVED FROM MASHA BURNS. PATIENT IN CHAIR, CALL LIGHT AND PERSONAL BELONGINGS IN REACH. PROVIDED PATIENT WITH TABLET CHICKEN VACCINATOR PER HER REQUEST. PATIENT DENIES CONCERNS AT THIS TIME.
--- NOTE | 2025-03-26 07:31 | NUR ---
MED REC COMPLETE
--- NOTE | 2025-03-26 07:56 | NUR ---
PATIENT IN CHAIR. ASSESMENT COMPLETE. PATIENT DENIES CONCERNS AT THIS TIME. CALL LIGHT AND PERSONAL BELONGIGNS IN REACH OF PATIET.
--- NOTE | 2025-03-26 08:10 | NUR ---
ALERT AND ORIENTED IN RECLINER. STATES SHE JUST GOT SO WEAK AT HOME THAT SHE COULD NOT STAND UP AND HER SON ASSISTED HER TO SIT ON THE FLOOR SO SHE WOULD NOT GET HURT. PATIENT STATES SHE KNOWS SHE CAN'T GO HOME DUE TO HER INABILITY TO CARE FOR SELF. SHE WOULD LIKE TO STAY IN [facility]. [facility] HAS A BED, BUT MAY NOT BE ABLE TO ACCEPT HER TODAY, THEY ARE REVIEWING CHART THAT WAS FAXED TO THEM THIS AM. PATIENT INFORMED TRANSITIONAL CARE IN THIS FACILITY MAY BE AN OPTION. PT WILL SEE HER THIS MORNING TO DISCUSS TRANSITIONAL VS SNF.
[2025-03-26 09:04] VITALS: BP 141/39; BP 414/39
--- NOTE | 2025-03-26 09:07 | NUR ---
HOURLY ROUNDING PATIENT SITTING IN RECLINER CHAIR, NO REQUEST AT THIS TIME. HOT TOWEL WAS GIVEN FOR AM CARE
--- NOTE | 2025-03-26 09:42 | NUR ---
PATIENT IN CHAIR, CALL LIGHT AND PERSONAL BELONGINGS IN REACH OF PATIENT.
--- NOTE | 2025-03-26 09:52 | NUR ---
SPOKE WITH LOIS AT [facility]. THEY CAN ACCEPT PATIENT TODAY AT 1300. PATIENT AND DR[address] SOARES UPDATED. DISCUSSED TRANSPORTATION WITH PATIENT, STATES SHE IS CURRENTLY TEXTING HER SON AND SHE WILL LET THIS NURSE KNOW IF SHE NEEDS TRANSPORTATION OR IF HE CAN PROVIDE. PATIENT DOES HAVE HER OWN CPAP MACHINE.
[2025-03-26 10:10] VITALS: BP 141/39
--- NOTE | 2025-03-26 10:14 | NUR ---
PATIENT IN CHAIR, CALL LIGHT AND PERSONAL BELONGINGS IN REACH OF PATIENT.
--- NOTE | 2025-03-26 10:15 | NUR ---
SPOKE WITH PATIENT, SHE STATES HER SON CAN NOT TRANSPORT HER. WHEELCHAIR VAN SCHEDULED FOR 1315 TODAY. NURSING STAFF UPDATED.
--- NOTE | 2025-03-26 11:01 | NUR ---
PATIENT IN CHAIR, CALL LIGHT AND PERSONAL BELONGINGS IN REACH
[2025-03-26] MEDS ORDERED: HYDROCODON-ACE1 EA10 PO (11:25)
--- NOTE | 2025-03-26 11:29 | NUR ---
UR CLINICAL REVIEW: 2 MN FOR [facility]-ME[facility] OBS FOR WEAKNESS WITH FAILURE TO DC TO HOME MEDICARE OBS 03/26/25 @ 0730 ORDER MATCHES REG NO AUTH REQUIRED PER MEDICARE GUIDELINES DISCHARGE TO LOCAL SNF TODAY PER PATIENT REQUEST
[2025-03-26] MEDS ORDERED: PHARMACY RENAL DOSE ADJUSTMENT 1 DOSE MISC PO SCH (12:00)
--- NOTE | 2025-03-26 12:08 | NUR ---
PATIENT IN CHAIR, LUNCH AT BEDSIDE. PATIENT REPORTS HEADACHE AND REQUESTS TYLENOL. TYLENOL ORDER NO LONGER ACTIVE ON JUL. PRN NIO TYLENOL ORDER PLACED PER PROTOCOL. CALL LIGHT AND PERSONAL BELONGINGS IN REACH OF PATIENT.
[2025-03-26] MEDS ORDERED: ACETAMINOPHEN 500 MG TAB PO PRN (12:15)
--- NOTE | 2025-03-26 12:20 | NUR ---
PATIENT IN CHAIR. PRN MEDICATION ADMINISTERED PER PATIENT REQUEST. CALL LIGHT AND PERSONAL BELONGINGS IN REACH OF PATIENT.
[2025-03-26 12:38] VITALS: BP 139/58
--- NOTE | 2025-03-26 13:10 | NUR ---
CALLED REPORT TO YVAN BURNS AT [facility]. SHE VERBALIZED UNDERSTANDING AND DENIES QUESTIONS AT THIS TIME.
== END 2025-03-26 13:07 | disposition home or self-care (01) ==
LOC: ED 20:49 → MS 20:51 → ED 21:14 → MS 21:14 → ED 03-26 07:30 → MS 03-26 13:07
PROVIDERS: ADMIT Student in an Organized Health Care Education/Training Program; ATTEND Student in an Organized Health Care Education/Training Program
DX: R53.1 Weakness (principal); S42.302D Unspecified fracture of shaft of humerus, left arm, subsequent encounter for fracture with routine healing; J44.9 Chronic obstructive pulmonary disease, unspecified; I10 Essential (primary) hypertension; E11.9 Type 2 diabetes mellitus without complications; K21.9 Gastro-esophageal reflux disease without esophagitis; Z88.0 Allergy status to penicillin; Z88.8 Allergy status to other drugs, medicaments and biological substances
CPT/HCPCS: 97161; 97166; 97530; 97535; A9270; G0378

== ENCOUNTER 2025-04-17 06:35 | Day surgery (SDC) | payer MEDICARE ==
[~2025-04-17] VITALS: Ht 157.5 cm; Wt 95.0 kg
[~2025-04-17 06:35] MED LIST changes: +LACTATED RINGER'S 1,000 ML IV SCH
[2025-04-17 06:55] VITALS: BP 131/54
[2025-04-17] MEDS ORDERED: LIDOCAINE HCL 1% 5 ML SDV INJ ONE (07:00)
[2025-04-17] MEDS ORDERED: CEFAZOLIN SODIUM 2 GM in SODIUM CHLORIDE 0.9% 100 ML IV SCH (07:00)
[2025-04-17] MEDS ORDERED: IBLOOD GLUCOSE TEST STRIP 1 EA TEST VI PRN ×2 (07:00→08:45)
[2025-04-17] MEDS ORDERED: TYLENOL EXTRA500 MG PO (07:05)
[2025-04-17 07:27] LABS: BASOPHILS 0.7 % (0.1-1.2); EOSINOPHILS 3.5 % (0.7-5.8); LYMPHOCYTES 17.1 % (19.3-51.7); MCH 28.2 PG (25.6-32.2); MCHC 32.9 g/dL (32.2-35.5); MCV 85.8 fL (79.4-94.8); MONOCYTES 8.3 % (4.7-12.5); NEUTROPHILS 69.4 % (34.0-71.1); RBC 3.79 M/uL (3.93-5.22)
[2025-04-17 07:37] LABS: INR 2.47 (0.80-1.30); PROTIME 25.3 Sec (11.2-14.2)
[2025-04-17 07:53] LABS: ALT (SGPT) 13.0 U/L (14-59); AST (SGOT) 15.0 U/L (15-37); GLOMERULAR FILTRATION RATE,EST 36.0 mL/min (>60); PROTEIN, TOTAL 7.2 g/dL (6.4-8.2); UREA NITROGEN 24.0 mg/dL (7-18)
[2025-04-17] MEDS ORDERED: LIDOCAINE HCL 2% 5 ML SDV ONE (08:32)
[2025-04-17] MEDS ORDERED: NALOXONE HCL 0.4 MG SYR IV PRN (08:45)
[2025-04-17] MEDS ORDERED: fentaNYL citrate 50 MCG/ML SDV IV PRN (08:45)
[2025-04-17] MEDS ORDERED: fentaNYL citrate 100 MCG/2 ML VIAL ONE (09:06)
[2025-04-17] MEDS ORDERED: ACETAMINOPHEN 1,000 MG/100 ML VIAL ONE (09:09)
[2025-04-17] MEDS ORDERED: TRANEXAMIC ACID 1,000 MG/10 ML AMP ONE (09:32)
[2025-04-17] MEDS ORDERED: LACTATED RINGER'S 1,000 ML IV ONE (09:46)
[2025-04-17] MEDS ORDERED: HYDROCODONE/ACETA 7.5/325 TAB PO PRN (10:00)
[2025-04-17] MEDS ORDERED: HYDROCODON-ACE1 EA11 PO (10:12)
--- NOTE | 2025-04-17 10:40 | NUR ---
04/17/25 1040 Sania Mendenhall 1000- PT ARRIVES TO PACU WITH ORAL AIRWAY IN PLACE. BREATHING IS EVEN AND UNLABORED. MONITORS PUT IN PLACE. VSS. LR INFUSING. SURGICAL SITES ARE CDI. PT IS REACTIVE TO TACTILE STIMULI PT BEGINS TO GAG ON ORAL AIRWAY. PT IS ON 6L OFO2 VIA MASK. 1001- ORAL AIRWAY REMOVED AT THIS TIME. 1008- PT OPENS EYES AND BEGINS TALKING WITH RN. PT REPORTS PAIN IN THE ARMPIT. 5/10 PAIN AND NO NAUSA. 1013- PT IS GIVEN FENTANYL, SEE EMAR. 1020- PT O2 SATS MAINTAIN ABOVE 95%. O2 TURNED OFF AND REMOVED. 1026- FENTANYL GIVEN, SEE EMAR. 1033- PT REPORTS PAIN IN THE ARMPIT MAY BE A LITTLE BETTER AND GIVES IT A 4/10 FOR PAIN. PT DENIES NAUSEA.
[2025-04-17 10:56] VITALS: BP 138/63
--- NOTE | 2025-04-17 11:02 | NUR ---
1048- PT IS RETURNED TO DAY SURGERY ROOM AT THIS TIME. SCD'S PLUGGED IN. BED IS LOCKED IN THE LOWEST POSITION. LR INFUSING. SURGICAL SITES REMAIN CDI. PT REPORTS 4/10 PAIN. DISCHARGE CRITERIA DISCUSSED AND PT IS UNDERSTANDING. CALL LIGHT IN REACH.
[2025-04-17 11:54] VITALS: BP 140/57
--- NOTE | 2025-04-17 12:04 | NUR ---
1200- PT SITTING UP IN BED IN POSTION OF COMFORT. PT DENIES NAUSEA BUT REPORTS PAIN NOTED. PT SURGICAL SITES, IV, AND VS NOTED. PT TOLERATING ORAL FLUIDS AND SNACKS. MEDS GIVEN PER EMAR FOR PAIN MANAGEMENT. PT UPDATED ON DC CRITERIA AND PT VERBALIZED UNDERSTANDING. WARM TEA AND WARM BLANKETS PROVIDED FOR PT COMFORT. CALL LIGHT IN REACH.
--- NOTE | 2025-04-17 13:22 | NUR ---
1215- PT VOIDED 600 ML CLEAR YELLOW URINE. PT SELF AMBULATED TO BATHROOM AND BACK TO BED HOLDING HAND OF RN FOR BALANCE ASSISTANCE. 1245- PT SON IS AT BEDSIDE. DC EDUCATION PROVIDED, PT AND SON VERBALIZED UNDERSTANDING. IV REMOVED WNL AND PT ASSISTED IN GETTING DRESSED BY RN. SLING SECURED IN POSTION OF COMFORT FOR PT. 1307- PT SELF TRANSFERED TO WHEELCHAIR WITH USE OF PERSONAL SHEA. PT TAKEN TO FRONT OF HOSPITAL VIA WHEELCHAIR. PT TRANSFERED WITHOUT ISSUE INTO PERSONAL VEHICLE DRIVEN BY HER SON TO TAKE HER HOME.
[2025-04-17] MEDS ORDERED: SEVOFLURANE 250 ML BTL INH ONE (14:22)
--- NOTE | 2025-04-18 08:27 | OR ---
[facility] [address] [place], [place] [address] Signed DATE OF OPERATION: 04/17/2025 SURGEON: Itz Gunter MD PREOPERATIVE DIAGNOSIS: Left proximal humerus fracture, status post closed pinning. POSTOPERATIVE DIAGNOSIS: Left proximal humerus fracture, status post closed pinning. PROCEDURE PERFORMED: Removal of pins deep left shoulder. LINE HELPER: None. ANESTHESIA: General. BRIEF HISTORY: Gemma is an 80-year-old female who had a displaced humerus fracture, but would not tolerate significant surgery. She was placed under monitored anesthesia and underwent closed reduction and pinning. She presented to the office with one of the pins sticking out and radiographs at that time showed displacement of the other pins. Risks and benefits of operative treatment were discussed with her. She elected to proceed. DESCRIPTION OF PROCEDURE: Once consent was obtained, she was taken to the operating room. After adequate anesthesia, she was placed on the OR table with a hand table. She was then slid laterally, so her shoulder was on the hand table. The image intensifier was brought in. The anterior pin was undisplaced and was removed easily through a small stab incision. This was done after prepping the shoulder. The two pins that were put in from superior to inferior were actually worked their way through and were anteriorly and medially displaced. A 1 inch incision was made overlying the axillary crease. This was carried through skin, subcutaneous tissue and down to the pectoralis. 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 There was no significant bleeding and wound was copiously irrigated with antibiotic solution, closed with kaitlynn and 3-0 Monocryl. Both wounds were dressed with Acticoat-7 dressing. She tolerated the procedure well. All sponge, Electronically Signed By: ITZ GUNTER MD 04/18/25 0827 PATIENT NAME: GEMMA BARRON OPERATIVE REPORT DATE OF : 41 REPORT #: [id number] PHYSICIAN: ITZ GUNTER MD PCP: LJ HUMMEL MD REPORT IS CONFIDENTIAL AND NOT TO BE RELEASED WITHOUT AUTHORIZATION [address] [place] [address] Signed needle, and instrument counts were correct. Itz Gunter MD BA/VERNONL /[id number] Copies: ~ Electronically Signed By: ITZ GUNTER MD 04/18/25 0827 PATIENT NAME: GEMMA ABRRON OPERATIVE REPORT DATE OF : 41 REPORT #: [id number] PHYSICIAN: ITZ GUNTER MD PCP: LJ HUMMEL MD REPORT IS CONFIDENTIAL AND NOT TO BE RELEASED WITHOUT AUTHORIZATION
== END 2025-04-17 13:07 | disposition home or self-care (01) ==
LOC: DS 06:35
PROVIDERS: Nurse Anesthetist, Certified Registered; ATTEND Specialist
PROC: 0PPD04Z Removal of Internal Fixation Device from Left Humeral Head, Open Approach (ICD-10-PCS; principal; 2025-04-17 09:00)
DX: S42.202A Unspecified fracture of upper end of left humerus, initial encounter for closed fracture (principal); X58.XXXA Exposure to other specified factors, initial encounter; E78.00 Pure hypercholesterolemia, unspecified; I10 Essential (primary) hypertension; E11.9 Type 2 diabetes mellitus without complications; Z88.0 Allergy status to penicillin; Z88.8 Allergy status to other drugs, medicaments and biological substances; Z79.84 Long term (current) use of oral hypoglycemic drugs; Z79.899 Other long term (current) drug therapy; Z87.891 Personal history of nicotine dependence
CPT/HCPCS: 01630; 36415; 73020; 80053; 85025; 85610; A9270; J0131; J0688; J2003; J2405; J2704; J3010; J7121